=== PATIENT | female | born 1990 | race American Indian/Alaskan Native ===

== ENCOUNTER 2019-01-15 21:46 | Emergency (ER) | payer OTHER ==
[2019-01-15 21:52] VITALS: BP 136/87
[2019-01-15] MEDS ORDERED: HYDROcodone/ACETAMINOPHEN 5-325 MG TAB PO ONE (22:34)
[2019-01-15] MEDS ORDERED: IBUPROFEN 800 MG TAB PO ONE (22:34)
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
[2019-01-16] MEDS ORDERED: ONDANSETRON 4 MG ODT TAB PO ONE (00:27)
[2019-01-16] MEDS ORDERED: ONDANSETRON 4 MG ODT TAB ONE (00:28)
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
== END 2019-01-16 01:10 | disposition home or self-care (01) ==
LOC: ED 21:46
DX: S70.11XA Contusion of right thigh, initial encounter (principal); V49.9XXA Car occupant (driver) (passenger) injured in unspecified traffic accident, initial encounter; Y93.89 Activity, other specified; Y92.410 Unspecified street and highway as the place of occurrence of the external cause; Y99.8 Other external cause status
CPT/HCPCS: 36415; 84703; Q0162